=== PATIENT | female | born 1970 | race Caucasian/White ===

== ENCOUNTER 2018-04-16 12:19 | Day surgery (SDC) | payer BC ==
--- NOTE | 2018-04-16 07:08 | History and Physical - [place] ---
CHIEF COMPLAINT/HISTORY OF CHIEF COMPLAINT: This patient with a history of atypical facial pain and trigeminal neuralgia had a spinal cord stimulator trial on 03/13/18 with what was estimated at 50-75% pain control and a significant reduction in the triggering for her trigeminal neuralgia. Due to the failure of all other therapies she is here for implantation of a permanent system. PAST MEDICAL HISTORY: Cerebrovascular disease, trigeminal neuralgia, and atypical facial pain. PAST SURGICAL HISTORY: Peripheral nerve stimulator implant and removal, cerebral aneurysm repair, and hysterectomy. MEDICATIONS ON ADMISSION: List to be provided. ALLERGIES: PERCOCET. FAMILY/PSYCHOSOCIAL HISTORY: Family history - Diabetes, coronary artery disease , and hypertension. SYSTEMS REVIEW: The patient seems appropriate with current chronic headache pattern. PHYSICAL EXAMINATION: Height and weight are not known. Vital signs not available. HEENT: Within normal limits. LUNGS: Clear. HEART: Regular rate and rhythm. ABDOMEN: Nontender. MUSCULOSKELETAL: Examination of the musculoskeletal system shows diffuse tenderness across the anterior lateral and posterior face and head. There are no appreciable upper extremity components although there is periodically pain into the shoulders. Sensory anaya are intact. NEUROLOGIC: Cranial nerves are intact. IMPRESSION: TRIGEMINAL NEURALGIA ICD-10 CODE G50.0 WITH ATYPICAL FACIAL PAIN. PLAN: The patient is here for implantation of a cervical spinal cord stimulator to control her atypical facial pain and trigeminal neuralgia, after a successful trial and the failure of other therapies. The procedure will be considered outpatient although an overnight stay will be encouraged. Potential risks, side effects and complications have all been reviewed and discussed. JOB NUMBER: [id number] MTDD
[~2018-04-16 12:19] MED LIST: ACETAMINOPHEN 1,000 MG/100 ML BTL IV ONE; CEFAZOLIN 2 Gram 2 GM/50 ML BAG IVPB ONE; FAMOTIDINE 20MG TABLET PO ONE; MECLIZINE 25 MG TABLET PO ONE
[2018-04-16] MEDS ORDERED: PROPOFOL 10 MG/ML VIAL IV ONE (12:20)
[2018-04-16] MEDS ORDERED: HYDROMORPHONE HCL 2 MG/ML VIAL IV ONE (12:20)
[2018-04-16] MEDS ORDERED: *PACU ONLY* KETAMINE HCL 10 MG/ML (20ML) VIAL IV ONE (12:20)
[2018-04-16] MEDS ORDERED: 0.9 % SODIUM CHLORIDE 10 ML VIAL IVP ONE (12:20)
[2018-04-16] MEDS ORDERED: MIDAZOLAM HCL 2MG/2ML VIAL IV ONE (12:20)
[2018-04-16] MEDS ORDERED: FENTANYL PF 100MCG/2ML VIAL IV ONE (12:20)
[2018-04-16] MEDS ORDERED: LIDOCAINE 1% MDV (10MG/ML) 20ML VIAL SQ ONE (12:20)
[2018-04-16] MEDS ORDERED: CEFAZOLIN 1G VIAL IM ONE (12:20)
[2018-04-16] MEDS ORDERED: HYDROCODONE/APAP 7.5/325MG TABLET PO PRN ×2 (17:12→17:24)
[2018-04-16] MEDS ORDERED: OXYCODONE/APAP 10MG-325MG TABLET PO PRN (17:12)
[2018-04-16] MEDS ORDERED: METOCLOPRAMIDE HCL 10 MG/2 ML VIAL IV PRN (17:12)
[2018-04-16] MEDS ORDERED: HYDROMORPHONE HCL 2 MG/ML VIAL IM PRN ×2 (17:12→17:25)
[2018-04-16] MEDS ORDERED: ACETAMINOPHEN 325 MG TAB PO PRN ×2 (17:12→17:23)
[2018-04-16] MEDS ORDERED: DIPHENHYDRAMINE HCL 25 MG CAPSULE PO PRN ×2 (17:12→17:26)
[2018-04-16] MEDS ORDERED: TEMAZEPAM 15 MG CAPSULE PO PRN (17:12)
[2018-04-16] MEDS ORDERED: SENNOSIDES/DOCUSATE SODIUM UD CAPSULE PO PRN (17:12)
[2018-04-16] MEDS ORDERED: DIPHENHYDRAMINE HCL 50 MG/ML VIAL IM PRN ×2 (17:26→17:36)
[2018-04-16] MEDS ORDERED: ALBUTEROL HFA 8 GM INHALER INH PRN (17:37)
[2018-04-16] MEDS ORDERED: CLONAZEPAM 1MG TABLET PO PRN (17:37)
[2018-04-16] MEDS ORDERED: HYDROMORPHONE HCL 2MG TABLET PO PRN (17:49)
[2018-04-16] MEDS ORDERED: AL HYDROX/MAG HYDROX 30ML UD PO PRN (17:53)
[2018-04-16] MEDS: GABAPENTIN 300 MG CAPSULE PO SCH ×2 (18:13→21:48)
[2018-04-16] MEDS: GABAPENTIN 100 MG CAPSULE PO SCH ×2 (18:13→21:49)
[2018-04-16] MEDS: CARBAMAZEPINE 200 MG TABLET PO SCH (18:13)
[2018-04-16] MEDS ORDERED: CEFAZOLIN 2 Gram 2 GM/50 ML BAG IVPB SCH (20:00)
[2018-04-16] MEDS ORDERED: DULOXETINE HCL 30 MG CAPSULE.DR PO SCH (22:00)
[2018-04-16] MEDS ORDERED: METOPROLOL SUCC 25 MG TAB.ER PO SCH (22:00)
[2018-04-16] MEDS ORDERED: ATORVASTATIN 20 MG TABLET PO SCH (22:00)
[2018-04-17] MEDS: CARBAMAZEPINE 200 MG TABLET PO SCH (01:58)
[2018-04-17] MEDS ORDERED: LEVOTHYROXINE SODIUM 75 MCG TABLET PO SCH (07:00)
[2018-04-17] MEDS ORDERED: CHOLECALCIFEROL 1,000 UNIT TABLET PO SCH (10:00)
--- NOTE | 2018-04-19 11:59 | Operative Note ---
DATE OF SURGERY: 04/16/18 PREOPERATIVE DIAGNOSES: CERVICAL RADICULOPATHY, ICD-10 CODE = M54.12 WITH TRIGEMINAL NEURALGIA AND ATYPICAL FASCIAL PAIN, ICD-10 CODE = G80.0. OPERATION: 1. FLUOROSCOPICALLY-GUIDED EPIDURAL ACCESS T1-2, PLACEMENT OF SPINAL CORD STIMULATOR LEAD 1, A [employer] IN[employer]INION 16 WITH 6 ELECTRODES POSITIONED RIGHT, C2. 2. FLUOROSCOPICALLY-GUIDED EPIDURAL ACCESS T2-3, PLACEMENT OF SPINAL CORD STIMULATOR LEAD 2, A [employer] IN[employer] 16 WITH 6 ELECTRODES POSITIONED LEFT, C3. 3. COMPLEX PROGRAMMING LEAD 1 OVER 20 MINUTES FOLLOWED BY COMPLEX PROGRAMMING LEAD 2 OVER 20 MINUTES. 4. INCISION, SUBCUTANEOUS DISSECTION, AND ANCHORING OF LEAD 1 AND LEAD 2 TO SUPRASPINOUS FASCIA USING A [employer] LOCK[employer] ANCHOR AND NONABSORBABLE SUTURE. 5. INCISION, SUBCUTANEOUS DISSECTION, AND CREATION OF A SUBCUTANEOUS POUCH AT RIGHT FLANK FOR PLACEMENT OF GENERATOR IDENTIFIED A [employer] WAVEWRITER 6. TUNNELING LEAD 1 AND LEAD INTO GENERATOR POUCH, EACH LEAD INTERFACED TO GENERATOR. 7. PLACEMENT OF GENERATOR POUCH SECURING TO POSTERIOR FASCIA WITH NONABSORBABLE SUTURE. PLACEMENT OF LEADS INTO POUCH. CLOSURE OF BOTH INCISIONS, STRATAFIX SUTURE, 2-0 FASCIA AND 3-0 RUNNING SUBCUTICULAR. DERMABOND CLOSURE SYSTEM. 8. EPIDURAL BLOOD PATCH, T10-11. 12 ML AUTOLOGOUS BLOOD DRAWN STERILE TECHNIQUE , LEFT ANTECUBITAL. 9. COMPLEX PROGRAMMING RECOVERY ROOM INTERNAL PULSE GENERATOR USE TWO STIMULATORS, 20 MINUTES. SURGEON: KATT ROMANO D.O. ANESTHESIA: LOCAL SEDATION. ANESTHESIA PROVIDER: LAURA PETER CRNA. INDICATION: This patient presents with a history of intractable cervical radiculopathy and atypical facial pain with a trigeminal component. Due to the failure of all therapy, a spinal cord stimulator trial was conducted in the office with 75+plus percent pain control. Due to the failure of all therapy and the success of the trial, she presents today for implantation of a permanent system. PROCEDURE: Intravenous line, vital sign monitoring, IV sedation by Anesthesia. Patient position prone. The epidural interspace at T1-2 and T2-3 were identified and marked on the right. Skin infiltrated. Using standard epidural needles with [id number], the space was accessed. At T2-3, a dural puncture took place with CSF noted. Spinal cord stimulator lead 1, a [employer] Infinion 16 with 6 electrodes was advanced at the position T1-2 positioned right of the midline C2. With the epidural access at 2-3, spinal cord stimulator lead 2, a [employer] Infinion 16 with 6 electrodes was positioned right at C3; it could not be advanced to C2. Complex programming was then performed over 20 minutes for lead 1 and 20 minutes for lead 2, re- establishing stimulation into the area of the neck; patient indicating we were in the areas of her pain. The skin below both needles were infiltrated, incision made, and subcutaneous dissection was conducted to the supraspinous fascia. Each lead was then anchored to the supraspinous fascia with a 4th aspect [employer] [place] and nonabsorbable suture. At the right flank, just below the lower rib, a site picked by the patient for the generator, skin infiltrated, incision made, and subcutaneous dissection was conducted to form a pouch of suitable size and depth for the generator identified as a [employer] Wave[employer]. A tunneling tool was used to carry the leads into the generator pouch and then each lead was interfaced to the generator. Antibiotic irrigation and Bovie for hemostasis. The generator was placed into the pouch and secured to the fascia with nonabsorbable suture. The leads were placed into their own pouch then both incisions were closed using a STRATAFIX suture, 2-0 fascia, 3-0 running subcuticular. Dermabond closure was placed. At T10-11, the epidural space was accessed with an 18-gauge Tuohy needle. 12 mL of autologous blood drawn sterile technique from the left antecubital. Blood placed onto the field and an epidural blood patch was performed at this level with this blood. The dressings were reinforced. She was transported to the Recovery Room stable, flat, pillow under head and knees. Complex programming of the generator was then performed over 20 minutes in the Recovery Room re-establishing stimulation. The patient will stay overnight for observation and discharged in the morning. She will stay flat for four hours, slowly elevated for one. DISCHARGE INSTRUCTIONS: 1. Sites remain clean and dry. Although the Dermabond will allow showering, she should not sit in water. 2. Standard medications resumed including Levaquin, the antibiotic, 500 mg once a day for 14 days. 3. The office will contact the patient in 24-48 hours to set up an appointment in 7-10 days to evaluate the sites. Until then, she is to keep her activities low. Should she have recurrence of the headache, fluids, caffeinated drinks, stay flat and contact the office. All other instructions provided with number to contact for problems given. She will be discharged in the morning. cc: Dr. Perri Anthony JOB NUMBER: [id number] MTDD
--- NOTE | 2018-04-19 21:27 | RADIOLOGY REPORT ---
EXAM: SPINE, 1 VIEW HISTORY: STIMULATOR PLACEMENT. TECHNIQUE: A single AP view of the lumbar spine was performed. FINDINGS: The stimulator lead tips are at the C2 level. IMPRESSION: STIMULATOR TIPS AT THE C2 LEVEL. JOB NUMBER: [id number] MTDD
== END 2018-04-17 10:50 | disposition home or self-care (01) ==
LOC: SUR 12:19 → MEDSURG 16:58 → SUR 04-17 10:50
PROVIDERS: ATTEND Pain Medicine Interventional Pain Medicine
DX: M54.12 Radiculopathy, cervical region (principal); G50.0 Trigeminal neuralgia; G50.1 Atypical facial pain; E78.00 Pure hypercholesterolemia, unspecified; E03.9 Hypothyroidism, unspecified; F41.8 Other specified anxiety disorders; G89.29 Other chronic pain; M79.1 Myalgia; Z86.73 Personal history of transient ischemic attack (TIA), and cerebral infarction without residual deficits
CPT/HCPCS: 63650; 63685; 62273; 00300; 95972; 72020; J3490; J3010; J1170; J0690; C1820; C1883